=== PATIENT | male | born 1965 | race American Indian/Alaskan Native ===

== ENCOUNTER 2022-02-07 12:00 | Emergency (ER) | payer SELFPAY ==
[2022-02-07 12:09] VITALS: BP 181/98
[2022-02-07] MEDS ORDERED: IBUPROFEN 800 MG TAB PO ONE ×2 (12:34→16:20)
--- NOTE | 2022-02-07 13:37 | XRay Report ---
RIGHT FOOT 3 VIEW(S) INDICATION / CLINICAL INFORMATION: fall with pain COMPARISON: None available. FINDINGS: BONES / JOINT(S): No acute fracture or subluxation. 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 Small degenerati ve enthesophyte of the calcaneus at the Achilles tendon attachment. SOFT TISSUES: No significant abnormality. ADDITIONAL FINDINGS: None. Signer Name: Valente Her MD Signed: 02/07/2022 1:32 PM Workstation Name: [id number]
--- NOTE | 2022-02-07 13:57 | XRay Report ---
RIGHT ANKLE 4 VIEW(S) INDICATION / CLINICAL INFORMATION: fall with pain COMPARISON: None available. FINDINGS: BONES / JOINT(S): No acute fracture or subluxation. No significant arthritis. Small degenerative enth esophyte of the calcaneus at the Achilles insertion. SOFT TISSUES: There is soft tissue swelling around the ankle which can be seen with ligamentous injur y. ADDITIONAL FINDINGS: None. Signer Name: Valente Her MD Signed: 02/07/2022 1:53 PM Workstation Name: [id number]
--- NOTE | 2022-02-07 14:42 | Emergency Department Report ---
ED Lower Extremity HPI - General Chief Complaint: Extremity Injury, Lower Stated Complaint: RT ANKLE PAIN Time Seen by Provider: 02/07/22 12:15 Source: patient Mode of arrival: Ambulatory Limitations: No Limitations - History of Present Illness Initial Comments: This is a 56-year-old male nontoxic, well nourished in appearance, no acute signs of distress presents to the ED with c/o of right ankle and foot pain several days. Patient stated that he had a mechanical fall from about 8 foot ladder which landed to right ankle/foot area. Patient denies any other injuries or trauma. Denies any LOC. Denies any neck or back pains. Denies any other complaints or symptoms. Patient denies any numbness, tingling, fever, chills, nausea, vomiting, chest pain, shortness of breath, headache, stiff neck. Patient denies any joint swelling or joint redness. Patient denies decreased range of motion. Patient stated has decreased gait due to pain. Patient denies any allergies. MD Complaint: ankle injury, foot injury -: days(s) Injury: Ankle: Right, Foot: Right Place: street/outdoors Severity: mild Severity scale (0 -10): 8 Improves With: immobilization Worsens With: weight bearing, movement, palpation Context: fall Associated Symptoms: swelling, able to partially bear weight. denies: snap/pop sensation, numbness, tingling, unable to bear weight - Related Data Previous Rx's Medication Instructions Recorded Last Taken Type Fluticasone [Flonase] 1 spray NS QDAY #1 bottle 10/30/18 Unknown Rx Meclizine [Antivert] 25 mg PO TID PRN #12 tablet 10/30/18 Unknown Rx Ondansetron [Zofran Odt] 4 mg PO Q8HR PRN #10 tab.rapdis 10/30/18 Unknown Rx Naproxen 500 mg PO Q12H PRN #12 tab 02/07/22 Unknown Rx Allergies Allergy/AdvReac Type Severity Reaction Status Date / Time No Known Allergies Allergy Unverified 10/30/18 11:12 ED Review of Systems ROS: Stated complaint: RT ANKLE PAIN Other details as noted in HPI Comment: All other systems reviewed and negative Constitutional: denies: chills, fever Eyes: denies: eye pain, eye discharge, vision change ENT: denies: ear pain, throat pain Respiratory: denies: cough, shortness of breath, wheezing Cardiovascular: denies: chest pain, palpitations Endocrine: no symptoms reported Gastrointestinal: denies: abdominal pain, nausea, diarrhea Genitourinary: denies: urgency, dysuria Musculoskeletal: denies: back pain, joint swelling, arthralgia Skin: denies: rash, lesions Neurological: denies: headache, weakness, paresthesias Psychiatric: denies: anxiety, depression Hematological/Lymphatic: denies: easy bleeding, easy bruising ED Past Medical Hx - Social History Smoking Status: Current Every Day Smoker Substance Use Type: None - Medications Home Medications: Home Medications Medication Instructions Recorded Confirmed Last Taken Type Fluticasone [Flonase] 1 spray NS QDAY #1 bottle 10/30/18 Unknown Rx Meclizine [Antivert] 25 mg PO TID PRN #12 tablet 10/30/18 Unknown Rx Ondansetron [Zofran Odt] 4 mg PO Q8HR PRN #10 tab.rapdis 10/30/18 Unknown Rx Naproxen 500 mg PO Q12H PRN #12 tab 02/07/22 Unknown Rx ED Physical Exam - General Limitations: No Limitations General appearance: alert, in no apparent distress - Head Head exam: Present: atraumatic, normocephalic - Eye Eye exam: Present: normal appearance - Neck Neck exam: Present: normal inspection, full ROM. Absent: lymphadenopathy - Respiratory Respiratory exam: Absent: respiratory distress - Cardiovascular Cardiovascular Exam: Present: regular rate - Extremities Exam Extremities exam: Present: full ROM, tenderness, normal capillary refill. Absent: joint swelling - Expanded Lower Extremity Exam Right Hip exam: Present: normal inspection, full ROM. Absent: tenderness, swelling Upper Leg exam: Present: normal inspection, full ROM. Absent: tenderness, swelling Knee exam: Present: normal inspection, full ROM. Absent: tenderness, swelling Lower Leg exam: Present: normal inspection, full ROM. Absent: tenderness, swelling Ankle exam: Present: full ROM, tenderness, swelling, ecchymosis. Absent: abrasion, laceration, deformity, crepidus, dislocation, erythema, anterior draw sign Foot/Toe exam: Present: normal inspection, full ROM, tenderness. Absent: swelling, abrasion, laceration, ecchymosis, deformity, crepidus, dislocation, erythema, amputation, puncture wound, foreign body, calcaneal tenderness, tenderness at base of 5th metatarsal, nail avulsion, subungual hematoma Neuro vascular tendon exam: Present: no vascular compromise Gait: Positive: observed and limited by pain 1 - pain here 1 - pain here - Back Exam Back exam: Present: normal inspection, full ROM. Absent: tenderness, CVA tenderness (R), CVA tenderness (L), muscle spasm, paraspinal tenderness, vertebral tenderness, rash noted - Neurological Exam Neurological exam: Present: alert, oriented X3 - Psychiatric Psychiatric exam: Present: normal affect, normal mood - Skin Skin exam: Present: warm, dry, intact, normal color. Absent: rash - Other Other exam information: Negative Merino test to right leg ED Course Vital Signs 02/07/22 12:07 Temperature 97.6 F Pulse Rate 83 Respiratory 18 Rate Blood Pressure 181/98 O2 Sat by Pulse 98 Oximetry - Reevaluation(s) Reevaluation #1: 02/07/22 14:43 Patient is speaking in full sentences with no signs of distress noted. ED Lower Extremity MDM - Radiology Data [facility] [address] [place] [address] XRay Report Signed Patient: EBONIE FLOYD MR#: [id number] : 1965 Acct:[id number] Age/Sex: 56 / M ADM Date: 02/07/22 Loc: ED Attending Dr: Ordering Physician: HAI SANCHEZ NP Date of Service: 02/07/22 Procedure(s): XR ankle 3+V RT Accession Number(s): [id number] cc: HAI SANCHEZ NP Fluoro Time In Minutes: RIGHT ANKLE 4 VIEW(S) INDICATION / CLINICAL INFORMATION: fall with pain COMPARISON: None available. FINDINGS: BONES / JOINT(S): No acute fracture or subluxation. No significant arthritis. Small degenerative enthesophyte of the calcaneus at the Achilles insertion. SOFT TISSUES: There is soft tissue swelling around the ankle which can be seen with ligamentous injury. ADDITIONAL FINDINGS: None. Signer Name: Shivam Her MD Signed: 02/07/2022 1:53 PM Workstation Name: [id number] Transcribed By: DB Dictated By: SHIVAM HER MD Electronically Authenticated By: SHIVAM HER MD Signed Date/Time: 02/07/221352 DD/ 51 TD/TT: - Medical Decision Making This is a 56-year-old male that presents with right ankle and foot injury. Patient is stable and was examined by me. I referred patient to an orthopedic doctor for further evaluation for possible MRI. X-ray has been obtained and dictated by the radiologist. Patient is notified of the x-ray report with noted by the patient. Patient does have normal gait with some tenderness and no joint swelling. No ecchymosis. no joint redness or swelling. Not warm to touch. No signs of cellulites present. Patient received a ankle stirrup and crutches. Educated by RN how to use crutches. Patient was instructed to RICE therapy. Patient received Motrin for pain. Patient is discharged with naproxen. At time of discharge, the patient does not seem toxic or ill in appearance. No acute signs of distress noted. Patient agrees to discharge treatment plan of care. No further questions noted by the patient. Critical care attestation.: If time is entered above; I have spent that time in minutes in the direct care of this critically ill patient, excluding procedure time. ED Disposition Clinical Impression: Right ankle injury Qualifiers: Encounter type: initial encounter Qualified Code(s): S99.911A - Unspecified injury of right ankle, initial encounter Right foot injury Qualifiers: Encounter type: initial encounter Qualified Code(s): S99.921A - Unspecified injury of right foot, initial encounter Fall Qualifiers: Encounter type: initial encounter Qualified Code(s): W19.XXXA - Unspecified fall, initial encounter Disposition: 01 HOME / SELF CARE / HOMELESS Is pt being admited?: No Does the pt Need Aspirin: No Condition: Stable Instructions: RICE Therapy for Routine Care of Injuries, [id number], Crutch Use, Adult, [id number] Additional Instructions: Follow-up with a orthopedic doctor in 3-5 days or if symptoms worsen and continue return to emergency room as soon as possible. No physical activity that extremity until cleared by orthopedic doctor Prescriptions: Naproxen 500 mg PO Q12H PRN #12 tab PRN Reason: Pain , Severe (7-10) Referrals: YULISA LAWRENCE MD [Staff Physician] - 3-5 Days PRIMARY CAREMD [Referring] - 3-5 Days Time of Disposition: 14:45
== END 2022-02-07 15:53 | disposition home or self-care (01) ==
LOC: ED 12:00
DX: S99.811A Other specified injuries of right ankle, initial encounter (principal); S99.921A Unspecified injury of right foot, initial encounter; F17.200 Nicotine dependence, unspecified, uncomplicated; W19.XXXA Unspecified fall, initial encounter; Y93.89 Activity, other specified; Y92.89 Other specified places as the place of occurrence of the external cause; Y99.8 Other external cause status
CPT/HCPCS: 99283